=== PATIENT | female | born 1995 | race Caucasian/White ===

== ENCOUNTER 2020-12-25 06:28 | Inpatient (IN) ==
[2020-12-25] MEDS ORDERED: *HR* FentaNYL (PF) 100 MCG/2 ML VIAL IVP ONE (06:41)
[2020-12-25] MEDS ORDERED: *HR* FentaNYL (PF) 100 MCG/2 ML VIAL ONE (06:44)
[2020-12-25] MEDS ORDERED: Benzocaine/Menthol 56 GM AEROSOL SPRAY TP PRN (07:00)
[2020-12-25] MEDS ORDERED: Benzocaine/Menthol 56 GM AEROSOL SPRAY TP ONE (07:02)
[2020-12-25] MEDS ORDERED: Oxytocin 20 units/ LR 1000 mL 20 UNIT/1,000 ML BAG IVC SCH (07:15)
[2020-12-25] MEDS ORDERED: Measles/Mumps/Rubella Vacc 0.5 ML VIAL SQ PRN (07:15)
[2020-12-25] MEDS ORDERED: Lanolin 7 G OINT...G. TP PRN (07:15)
[2020-12-25] MEDS ORDERED: Rho Immune Globulin 1,500 UNIT SYRINGE IM PRN (07:15)
[2020-12-25] MEDS ORDERED: Ondansetron ODT 4 MG TAB.RAPDIS SL PRN (07:15)
[2020-12-25 09:07] LABS: Basophils # 0.1 K/mcL (0.0-0.2); Basophils % 0.5 %; Eosinophils # 0.1 K/mcL (0.0-0.6); Eosinophils % 0.8 %; Hematocrit 28.4 % (35.3-44.9); Hemoglobin 8.9 g/dL (11.5-15.4); Immature Granulocytes % 0.8 % (0-4); Lymphocytes # 2.3 K/mcL (0.6-4.6); Lymphocytes % 14.1 %; Mean Corpuscular HGB Conc 31.3 g/dL (31.6-35.5); Mean Corpuscular Hemoglobin 27.6 pg (28.0-33.3); Mean Corpuscular Volume 87.9 fL (83.0-100.0); Mean Platelet Volume 9.8 fL (9.4-12.4); Monocytes # 1.2 K/mcL (0.0-1.3); Monocytes % 7.3 %; Neutrophils # 12.6 K/mcL (1.6-8.9); Platelet Count 236 K/mcL (140-400); Red Blood Count 3.23 M/mcL (3.82-4.97); Red Cell Distribution Width 14.5 % (11.5-14.5); Segmented Neutrophils % 76.5 %; White Blood Count 16.5 K/mcL (4.3-11.1)
[2020-12-25] MEDS: Prenatal Vit/FA 1 EACH TABLET PO SCH (10:11)
[2020-12-25] MEDS: Ibuprofen 600 MG TABLET PO SCH ×2 (10:12→16:16)
[2020-12-25 10:41] LABS: Varicella Zoster IgG Antibody Positive
[2020-12-25 10:42] LABS: Rubella IgG Antibody POSITIVE (POSITIVE)
[2020-12-25 11:12] LABS: Hepatitis B Surface Antigen Nonreactive (Nonreactive)
[2020-12-25 11:40] LABS: HIV-1&2 Antibody & p24 Ag Nonreactive (Nonreactive)
[2020-12-25] MEDS: Acetaminophen 325 MG TABLET PO SCH (19:52)
[2020-12-25 20:01] VITALS: O2SAT 98
[2020-12-26] MEDS: Prenatal Vit/FA 1 EACH TABLET PO SCH (07:48)
[2020-12-26] MEDS: Ibuprofen 600 MG TABLET PO SCH (07:48)
[2020-12-26] MEDS: Acetaminophen 325 MG TABLET PO SCH (07:48)
[2020-12-26 08:19] VITALS: BP 110/75; PULSE 86; TEMP 98.4
== END 2020-12-26 15:04 | disposition home or self-care (01) | DRG 548 ==
LOC: 1NENULAB 06:28 → 1NENUOBS 09:38
PROVIDERS: ADMIT Advanced Practice Midwife; ATTEND Advanced Practice Midwife